=== PATIENT | male | born 1995 | race Caucasian/White ===

== ENCOUNTER 2016-08-24 22:22 | Emergency (ER) | payer OTHER ==
[~2016-08-24] VITALS: Ht 180.3 cm; Wt 75.0 kg
[2016-08-24 22:37] VITALS: BP 118/73; PULSE 92; RESP 20; TEMP 98.2; O2SAT 98
[2016-08-24 22:39] VITALS: BP 120/76; PULSE 88; RESP 20; O2SAT 98
--- NOTE | 2016-08-24 22:40 | PD ---
HPI . Suicidal Chief Complaint: Suicidal Time Seen by Provider: 22:35 Travel History International Travel<30 days: No Contact w/Intl Traveler<30days: No History of Present Illness HPI Patient presents with suicidal ideation. He cut his left wrist. He has also somehow injured his right thumb. He states that he suffers from depression and tonight has been a bad night. PFSH Social History Tobacco Use: No Allergies-Medications (Allergen,Severity, Reaction): Coded Allergies: No Known Allergies (Unverified , 08/24/16) Reported Meds & Prescriptions Reported Meds & Active Scripts Active No Active Prescriptions or Reported Medications Review of Systems Except as stated in HPI: all other systems reviewed are Neg Musculoskeletal: Positive: Pain (right thumb pain) Skin: Positive Other (left wrist laceration) Psychiatric: Positive: Depression, Suicidal Ideations Physical Exam Narrative GENERAL: Awake and alert and in no acute distress. SKIN: Warm and dry. Superficial laceration on the flexor surface of the left wrist. HEAD: Atraumatic. Normocephalic. EYES: Pupils equal and round. Extraocular movements are intact. NECK: Trachea midline. Neck is supple. CARDIOVASCULAR: Regular rate and rhythm. RESPIRATORY: No accessory muscle use. MUSCULOSKELETAL: No obvious deformities. No edema. NEUROLOGICAL: Awake and alert. No obvious cranial nerve deficits. Motor grossly within normal limits. Normal speech. PSYCHIATRIC: Appropriate mood and affect; insight and judgment poor. Data Data Last Documented VS Vital Signs Date Time Temp Pulse Resp B/P Pulse Ox O2 Delivery O2 Flow Rate FiO2 08/24/16 22:39 88 20 120/76 98 Room Air 08/24/16 22:37 98.2 Orders Complete Blood Count With Diff (08/24/16 22:35) Comprehensive Metabolic Panel (08/24/16 22:35) Psych Screen (08/24/16 22:35) Drug Screen, Random Urine (08/24/16 22:35) Alcohol (Ethanol) (08/24/16 22:35) Hand, Complete ([id number]) (08/24/16 22:35) Labs Laboratory Tests Test 08/24/16 08/24/16 22:45 23:00 White Blood Count 4.8 TH/MM3 Red Blood Count 5.03 MIL/MM3 Hemoglobin 14.5 GM/DL Hematocrit 43.3 % Mean Corpuscular Volume 86.1 FL Mean Corpuscular Hemoglobin 28.9 PG Mean Corpuscular Hemoglobin 33.6 % Concent Red Cell Distribution Width 14.8 % Platelet Count 174 TH/MM3 Mean Platelet Volume 8.9 FL Neutrophils (%) (Auto) 41.9 % Lymphocytes (%) (Auto) 49.6 % Monocytes (%) (Auto) 6.1 % Eosinophils (%) (Auto) 1.6 % Basophils (%) (Auto) 0.8 % Neutrophils # (Auto) 2.0 TH/MM3 Lymphocytes # (Auto) 2.4 TH/MM3 Monocytes # (Auto) 0.3 TH/MM3 Eosinophils # (Auto) 0.1 TH/MM3 Basophils # (Auto) 0.0 TH/MM3 CBC Comment DIFF FINAL Differential Comment Sodium Level 144 MEQ/L Potassium Level 3.8 MEQ/L Chloride Level 109 MEQ/L Carbon Dioxide Level 23.8 MEQ/L Anion Gap 11 MEQ/L Blood Urea Nitrogen 8 MG/DL Creatinine 0.88 MG/DL Estimat Glomerular Filtration 110 ML/MIN Rate Random Glucose 83 MG/DL Calcium Level 9.3 MG/DL Total Bilirubin 0.9 MG/DL Aspartate Amino Transf 20 U/L (AST/SGOT) Alanine Aminotransferase 17 U/L (ALT/SGPT) Alkaline Phosphatase 59 U/L Total Protein 8.2 GM/DL Albumin 4.9 GM/DL Ethyl Alcohol Level 102 MG/DL Urine Opiates Screen NEG Urine Barbiturates Screen NEG Urine Amphetamines Screen NEG Urine Benzodiazepines Screen NEG Urine Cocaine Screen NEG Urine Cannabinoids Screen POS MDM Medical Decision Making Medical Screen Exam Complete: Yes Emergency Medical Condition: Yes Differential Diagnosis Differential diagnosis includes but is not limited to depression with suicidal gesture, suicide attempt, suicidal ideation, attention seeking behavior. Narrative Course Patient presents as a Moralez Act with suicidal ideation. He will be medically cleared and then referred to psychiatry. Last Impressions Hand X-Ray 08/24/16 2636 Signed Impressions: Service Date/Time: Wednesday, August 24, 2016 22:54 - CONCLUSION: No definite fracture is seen for technique. K. Houston Rubio MD The x-ray was independently viewed by me. CBC & BMP Diagram 08/24/16 22:45 Alcohol level is 102. Toxicology is positive for THC. This patient is medically clear for psychiatric evaluation. Diagnosis Primary Impression: Suicidal ideation Additional Impressions: Laceration of left wrist Qualified Code: S61.512A - Laceration of left wrist, initial encounter Contusion of right hand Qualified Code: S60.221A - Contusion of right hand, initial encounter Scripts No Active Prescriptions or Reported Meds Condition: Mayra Smith MD August 24, 2016 22:40
[2016-08-24 22:59] LABS: BASOPHIL % 0.8 % (0.0-2.0); EOSINOPHIL # 0.1 TH/MM3 (0-0.4); EOSINOPHIL % 1.6 % (0.0-4.0); HEMATOCRIT 43.3 % (39.0-51.0); HEMO FLAGS DIFF FINAL; LYMPH % 49.6 % (9.0-44.0); LYMPHOCYTE # 2.4 TH/MM3 (1.0-4.8); MEAN CELL VOLUME 86.1 FL (80.0-100.0); MEAN CORPUSCULAR HEMOGLOBIN 28.9 PG (27.0-34.0); MEAN CORPUSCULAR HGB CONC 33.6 % (32.0-36.0); MONO % 6.1 % (0.0-8.0); NEUT % 41.9 % (16.0-70.0); PLATELET COUNT 174 TH/MM3 (150-450); RED BLOOD COUNT 5.03 MIL/MM3 (4.50-5.90); RED CELL DISTRIBUTION WIDTH 14.8 % (11.6-17.2); WHITE BLOOD COUNT 4.8 TH/MM3 (4.0-11.0)
--- NOTE | 2016-08-24 23:08 | RADRPT ---
EXAM DATE/TIME: 08/24/2016 22:54 [facility] COMPARISON: No previous studies available for comparison. INDICATIONS : Right hand pain with swelling and multiple abrasions. MEDICAL HISTORY : Previous right hand fracture SURGICAL HISTORY : None. ENCOUNTER: Initial ACUITY: 1 day PAIN SCORE: 6/10 LOCATION: Right upper extremity FINDINGS: No definite fractures, or dislocations are identified. No definite lytic or sclerotic lesion is seen . There is deformity of the fifth metacarpal bone due to old healed fracture. CONCLUSION: No definite fracture is seen for technique. John Rubio MD on August 24, 2016 at 23:06 Board Certified Radiologist. This report was verified electronically.
[2016-08-24 23:19] LABS: AMPHETAMINE, URINE NEG (NEG); BARBITURATES, URINE NEG (NEG); COCAINE, URINE NEG (NEG)
[2016-08-24 23:28] LABS: ALT (GPT) 17 U/L (9-52); ANION GAP 11 MEQ/L (5-15); AST (GOT) 20 U/L (15-39); BICARBONATE 23.8 MEQ/L (21.0-32.0); BLOOD UREA NITROGEN 8 MG/DL (7-18); CHLORIDE 109 MEQ/L (98-107); GLOMERULAR FILTRATION RATE 110 ML/MIN (>89); POTASSIUM 3.8 MEQ/L (3.5-5.1); SODIUM (NA) 144 MEQ/L (136-145)
[2016-08-24 23:30] LABS: ALKALINE PHOSPHATASE 59 U/L (45-117); TOTAL BILIRUBIN ADULT 0.9 MG/DL (0.2-1.0)
[2016-08-25 00:38] VITALS: BP 112/62; PULSE 72; RESP 17; O2SAT 100
[2016-08-25 02:17] VITALS: BP 105/55; PULSE 76; RESP 18; O2SAT 95
[2016-08-25 06:11] VITALS: BP 92/54; PULSE 52; RESP 18; TEMP 97.6; O2SAT 99
[2016-08-25 10:58] VITALS: BP 110/69; PULSE 72; RESP 16; O2SAT 96
[2016-08-25 12:01] VITALS: BP 110/69; TEMP 98.3
--- NOTE | 2016-08-25 12:14 | PD ---
History of Present Illness Chief Complaint: Psychiatric Symptoms Time Seen by Provider: 11:15 Travel History International Travel<30 Days: No Contact w/Intl Traveler<30days: No Known affected area: No Legal Status Legal Status: Moralez Act Moralez Act Signed By: Deborah Ray History of Present Illness: History of Present Illness HPI Patient is a 21 year old male with no reported psychiatric history who presents to ed on a BA initiated by ОЛЬГАD. As per the report he cut his wrists in an attempt to harm self. Angry and upset. He states that he suffers from depression and tonight has been a bad night. EMR is reviewed. [place] contact with [facility] [place]. Current toxicology is positive for cannabinoids as well as BAL of 102. Patient was monitored in J pod and presented no behavioral concerns and no suicidality. This morning he is clinically sober. Awake, alert, oriented, engaging and cooperative. He reports that he was not suicidal and that the cuts in his hands are from him punching the wall and a glass while he was angry. He admits to drinking " 4 LOKOS " prior to the police being called. He denies any depression, anxiety, suicidal or homicidal ideation, intent or plan. He goes on to say that he was having trouble with his roommates and that " all we have been doing is smoking weed and hanging out". His injuries do not appear to be from intentional lacerations but rather appear to be as a result of striking a wall or a window. He is planning on moving in with his girlfriend to [place] once he is discharged. [facility] Past Medical History Depression: Yes Immunizations Current: Yes Tetanus Vaccination: < 5 Years Influenza Vaccination: No Past Surgical History Surgical History: No Previous Surgery Psychiatric History Psychiatric History Hx Psychiatric Treatment: HX: DEPRESSION AND PTSD as an adolescent History of Inpatient Treatment: Yes Guns or firearms in home: No Social History Single. Lives with roommates. Unemployed. Came here from [place]after he completed [employer]. Hx Alcohol Use: Yes Hx Tobacco Use: No Hx Substance Use: Yes Substance Use Type: Marijuana Hx of Substance Use Treatment: No Family Psychiatric History Negative Allergies-Medications (Allergen,Severity, Reaction): Coded Allergies: No Known Allergies (Unverified , 08/24/16) Reported Meds & Prescriptions Reported Meds & Active Scripts Active No Active Prescriptions or Reported Medications Review of Systems Except as stated in HPI: all other systems reviewed are Neg Exam Alert: Yes [place]: Person (ox4) Mood: Calm Affect: Appropriate Speech: Clear, Logical Eye Contact: Normal Memory Intact: Comment (no impairmetn) Hallucinations: Other (Negative) Delusions: No Suicidal: Ideation (deneis any) Homicidal: Ideation (deneis any) MDM Medical Decision Making Medical Record Reviewed: Yes Assessment/Plan 21 year old under a BA after he allegedly attempted to harm himself by cutting his wrists. Patient intoxicated at the time and states he punched a wall and a window. Patient at this time presents no criteria for BA LIFT BA. Recommend abstinence from ETOH. Orders Complete Blood Count With Diff (08/24/16 22:35) Comprehensive Metabolic Panel (08/24/16 22:35) Psych Screen (08/24/16 22:35) Drug Screen, Random Urine (08/24/16 22:35) Alcohol (Ethanol) (08/24/16 22:35) Hand, Complete ([id number]) (08/24/16 22:35) Diet Regular Basic (08/25/16 Breakfast) Results Vital Signs Date Time Temp Pulse Resp B/P Pulse Ox O2 Delivery O2 Flow Rate FiO2 08/25/16 12:01 98.3 72 18 110/69 96 08/25/16 10:58 72 16 110/69 96 Room Air 08/25/16 06:11 97.6 52 18 92/54 99 Room Air 08/25/16 02:17 76 18 105/55 95 Room Air 08/25/16 00:38 72 17 112/62 100 08/24/16 22:39 88 20 120/76 98 Room Air 08/24/16 22:37 98.2 92 20 118/73 98 Laboratory Tests Test 08/24/16 08/24/16 22:45 23:00 White Blood Count 4.8 Red Blood Count 5.03 Hemoglobin 14.5 Hematocrit 43.3 Mean Corpuscular Volume 86.1 Mean Corpuscular Hemoglobin 28.9 Mean Corpuscular Hemoglobin 33.6 Concent Red Cell Distribution Width 14.8 Platelet Count 174 Mean Platelet Volume 8.9 Neutrophils (%) (Auto) 41.9 Lymphocytes (%) (Auto) 49.6 Monocytes (%) (Auto) 6.1 Eosinophils (%) (Auto) 1.6 Basophils (%) (Auto) 0.8 Neutrophils # (Auto) 2.0 Lymphocytes # (Auto) 2.4 Monocytes # (Auto) 0.3 Eosinophils # (Auto) 0.1 Basophils # (Auto) 0.0 CBC Comment DIFF FINAL Differential Comment Sodium Level 144 Potassium Level 3.8 Chloride Level 109 Carbon Dioxide Level 23.8 Anion Gap 11 Blood Urea Nitrogen 8 Creatinine 0.88 Estimat Glomerular Filtration 110 Rate Random Glucose 83 Calcium Level 9.3 Total Bilirubin 0.9 Aspartate Amino Transf 20 (AST/SGOT) Alanine Aminotransferase 17 (ALT/SGPT) Alkaline Phosphatase 59 Total Protein 8.2 Albumin 4.9 Ethyl Alcohol Level 102 Urine Opiates Screen NEG Urine Barbiturates Screen NEG Urine Amphetamines Screen NEG Urine Benzodiazepines Screen NEG Urine Cocaine Screen NEG Urine Cannabinoids Screen POS Diagnosis Primary Impression: Alcohol intoxication Additional Impressions: Contusion of right hand Laceration of left wrist Psychiatrically Cleared: Yes Departure Forms: Tests/Procedures Patient Instructions: General Instructions, Mood Disorders (ED), Medical Clearance for Psychiatric Care (ED) Additional Instructions: Dicharge Home Dx. Drug induced Mood Disorder Follow-up as needed with PMD Return to ED for continuing problems Med/ Other Pt Specific Info: No Meds Exist/No RX given Prescriptions No Active Prescriptions or Reported Meds Disposition: 01 DISCHARGE HOME Condition: Stable Problem Qualifiers Additional Impressions: Contusion of right hand Qualified Code: S60.221A - Contusion of right hand, initial encounter Laceration of left wrist Qualified Code: S61.512A - Laceration of left wrist, initial encounter Viktoriya Ambrose [facility] August 25, 2016 12:14
== END 2016-08-25 12:05 | disposition home or self-care (01) ==
LOC: NEDAMB 22:22 → NEPJ 08-25 12:05
DX: S61.512A Laceration without foreign body of left wrist, initial encounter (principal); S60.221A Contusion of right hand, initial encounter; R45.851 Suicidal ideations; F12.10 Cannabis abuse, uncomplicated; F32.9 Major depressive disorder, single episode, unspecified; Y28.9XXA Contact with unspecified sharp object, undetermined intent, initial encounter; Y93.9 Activity, unspecified; Y92.9 Unspecified place or not applicable; Y99.9 Unspecified external cause status
CPT/HCPCS: 73130; 80053; 80307; 85025; 99284